=== PATIENT | male | born 1955 | race Caucasian/White ===

== ENCOUNTER 2018-10-17 18:17 | Observation (INO) | payer BC ==
[2018-10-17] MEDS ORDERED: NS 0.9% 1000 ML* 2,000 ML IV ONE (18:32)
[2018-10-17] MEDS ORDERED: Ondansetron INJ* 2 MG/ML VIAL IV ONE (18:32)
[2018-10-17 19:03] LABS: ABS Basophils 0 10^3/ul (0-0.2); ABS Eosinophils 0.1 10^3/ul (0-0.6); ABS Lymphocytes 0.4 10^3/ul (1.0-4.8); ABS Monocytes 0.3 10^3/ul (0-0.8); ABS Neutrophils 7.8 10^3/ul (1.5-7.7); ABS Nucleated RBC 0 10^3/ul; Eosinophil % 1.1 %; Hematocrit 41 % (42-52); Lymphocyte % 4.2 %; Mean Corpuscular HGB Conc 34 g/dl (31-36); Mean Corpuscular Hemoglobin 30 pg (27-31); Mean Corpuscular Volume 89 fL (80-94); Mean Platelet Volume 7.2 fL (7.4-10.4); Nucleated Red Blood Cells % 0; Platelet Count 292 10^3/ul (150-450); Red Blood Count 4.64 10^6/ul (4.00-5.40); Red Cell Distribution Width 13 % (10.5-15); White Blood Count 8.6 10^3/ul (3.5-10.8)
[2018-10-17 19:24] LABS: Albumin 4.2 g/dL (3.2-5.2); Albumin/Globulin Ratio 1.3 (1-3); BUN/Creatinine Ratio 15.6 (8-20); Calcium 9.1 mg/dL (8.6-10.3); EGFR Non-African American 68.8 (>60); Globulin 3.2 g/dL (2-4); Potassium 4.1 mmol/L (3.5-5.0); Total Bilirubin 0.5 mg/dL (0.2-1.0); Total Protein 7.4 g/dL (6.4-8.9)
[2018-10-17] MEDS ORDERED: Lidocaine 1% INJ* 10 MG/ML 30 ML SDV ONE (19:31)
--- NOTE | 2018-10-17 19:45 | ED ---
Syncope/Near Syncope - HPI Summary HPI Summary: The patient is a 63 y/o M presenting to [facility] accompanied by with a chief complaint of syncopal episode today. He states that he wasn't feeling well throughout the day as he was nauseous, so he rested until he got up to go the bathroom when he became dizzy and fell. During the fall, he hit his head, causing a laceration to the left eyebrow. Per , he passed out again, and also vomited afterwards. The dizziness has resolved. He additionally c/o diaphoresis and chills. He denies chest pain or pressure. He has hx of GERD and heart stent. His interlocker maintainer is Dr. Salter. - History Of Current Complaint Chief Complaint: EDDizziness Time Seen by Provider: 10/17/18 18:24 Hx Obtained From: Patient Onset/Duration: Sudden Onset, Resolved Timing: Hours - this morning Activity At Onset: Other - ambulating to the bathroom Associated Head Trauma: Yes Aggravating Factor(s): Nothing Alleviating Factor(s): Nothing Associated Signs And Symptoms: Other - POSITIVE: laceration to left eyebrow, dizziness, nausea, vomiting, diaphoresis, chills; NEGATIVE: chest pressure or pain - Allergies/Home Medications Allergies/Adverse Reactions: Allergies Allergy/AdvReac Type Severity Reaction Status Date / Time aspirin Allergy Hives Verified 10/17/18 20:59 ibuprofen Allergy Hives Verified 10/17/18 20:59 ketorolac [From Toradol] Allergy Hives/Diff. Verified 10/17/18 20:59 Breathing/I tching NSAIDS (Non-Steroidal Allergy Hives Verified 10/17/18 18:22 Anti-Inflamma Home Medications: Home Medications Clopidogrel TAB* [Plavix TAB*] 75 mg PO DAILY 10/17/18 [History Confirmed ] Fluoxetine HCl [Prozac] 20 mg PO DAILY 10/17/18 [History Confirmed 10/17/18] Metformin ER (NF) 500 mg PO BID 10/17/18 [History Confirmed 10/17/18] Pantoprazole Sodium 40 mg PO DAILY 10/17/18 [History Confirmed 10/17/18] Rosuvastatin Calcium 20 mg PO DAILY 10/17/18 [History Confirmed 10/17/18] PMH/Surg Hx/FS Hx/Imm Hx Cardiovascular History: Denies: Hx Hypertension Respiratory History: Denies: Hx Asthma GI History: Denies: Hx Gastroesophageal Reflux Disease - Surgical History Surgery Procedure, Year, and Place: heart stent Infectious Disease History: No Infectious Disease History: Denies: Traveled Outside the [place] in Last 30 Days - Family History Known Family History: Positive: Cardiac Disease - Social History Lives: With Family Alcohol Use: None Hx Substance Use: No Substance Use Type: Reports: None Hx Tobacco Use: No Review of Systems Positive: Chills. Negative: Fever Negative: Erythema Negative: Sore Throat Negative: Chest Pain Negative: Shortness Of Breath, Cough Positive: Vomiting, Nausea. Negative: Abdominal Pain Negative: dysuria, hematuria Negative: Myalgia, Edema Positive: Other - laceration of left eyebrow. Negative: Rash Neurological: Other - dizziness Positive: Syncope All Other Systems Reviewed And Are Negative: Yes Physical Exam - Summary Physical Exam Summary: Constitutional: Well-developed, Well-nourished, Alert. (-) Distressed Skin: Warm, Dry HENT: Normocephalic; Atraumatic Eyes: Conjunctiva normal Neck: Musculoskeletal ROM normal neck. (-) JVD, (-) Stridor, (-) Tracheal deviation Cardio: Rhythm regular, rate normal, Heart sounds normal; Intact distal pulses; The pedal pulses are 2+ and symmetric. Radial pulses are 2+ and symmetric. (-) Murmur Pulmonary/Chest wall: Effort normal. (-) Respiratory distress, (-) Wheezes, (-) Rales Abd: Soft, (-) epigastric tenderness, (-) Distension, (-) Guarding, (-) Rebound Musculoskeletal: (-) Edema Lymph: (-) Cervical adenopathy Neuro: Alert, Oriented x3 Psych: Mood and affect Normal Triage Information Reviewed: Yes Vital Signs On Initial Exam: Initial Vitals Temp Pulse Resp BP Pulse Ox 97 F 99 16 117/68 99 10/17/18 18:20 10/17/18 18:20 10/17/18 18:20 10/17/18 18:20 10/17/18 18:20 Vital Signs Reviewed: Yes - Marcy Coma Scale Best Eye Response: 4 - Spontaneous Best Motor Response: 6 - Obeys Commands Best Verbal Response: 5 - Oriented Coma Scale Total: 15 Procedures - Laceration/Wound Repair 1 Location: head - left eyebrow Description: Linear Anesthesia: 1.0%, Lido Laceration/Wound Explored: clean Suture Type: Other - ethilon, 4-0 simple interrupted Number of Sutures: 5 Diagnostics - Vital Signs Vital Signs Temp Pulse Resp BP Pulse Ox 10/17/18 19:11 91 142/80 100 10/17/18 18:41 91 114/65 100 10/17/18 18:20 97 F 99 16 117/68 99 - Laboratory Lab Results: Lab Results 10/17/18 10/17/18 10/17/18 Range/Units 18:49 18:49 18:49 WBC 8.6 (3.5-10.8) 10^3/ul RBC 4.64 (4.00-5.40) 10^6/ul Hgb 14.0 (14.0-18.0) g/dl Hct 41 L (42-52) % MCV 89 (80-94) fL MCH 30 (27-31) pg MCHC 34 (31-36) g/dl RDW 13 (10.5-15) % Plt Count 292 (150-450) 10^3/ul MPV 7.2 L (7.4-10.4) fL Neut % (Auto) 90.6 % Lymph % (Auto) 4.2 % Bandera % (Auto) 3.9 % Eos % (Auto) 1.1 % Baso % (Auto) 0.2 % Absolute Neuts (auto) 7.8 H (1.5-7.7) 10^3/ul Absolute Lymphs (auto) 0.4 L (1.0-4.8) 10^3/ul Absolute Monos (auto) 0.3 (0-0.8) 10^3/ul Absolute Eos (auto) 0.1 (0-0.6) 10^3/ul Absolute Basos (auto) 0 (0-0.2) 10^3/ul Absolute Nucleated RBC 0 10^3/ul Nucleated RBC % 0 Sodium 137 (135-145) mmol/L Potassium 4.1 (3.5-5.0) mmol/L Chloride 101 (101-111) mmol/L Carbon Dioxide 26 (22-32) mmol/L Anion Gap 10 (2-11) mmol/L BUN 17 (6-24) mg/dL Creatinine 1.09 (0.67-1.17) mg/dL Est GFR ( Amer) 83.2 (>60) Est GFR (Non-Af Amer) 68.8 (>60) BUN/Creatinine Ratio 15.6 (8-20) Glucose 158 H (70-100) mg/dL Lactic Acid 2.1 H* (0.5-2.0) mmol/L Calcium 9.1 (8.6-10.3) mg/dL Total Bilirubin 0.50 (0.2-1.0) mg/dL AST 17 (13-39) U/L ALT 20 (7-52) U/L Alkaline Phosphatase 74 (34-104) U/L Troponin I 0.40 H* (<0.04) ng/mL Total Protein 7.4 (6.4-8.9) g/dL Albumin 4.2 (3.2-5.2) g/dL Globulin 3.2 (2-4) g/dL Albumin/Globulin Ratio 1.3 (1-3) Result Diagrams: 10/17/18 18:49 10/17/18 18:49 Lab Statement: Any lab studies that have been ordered have been reviewed, and results considered in the medical decision making process. - Radiology CXR Radiology Interpretation Completed By: Radiologist Summary of Radiographic Findings: No acute disease. ED physician has reviewed this report. - CT Brain CT CT Interpretation Completed By: Radiologist Summary of CT Findings: No acute intracranial pathology. ED physician has reviewed this report. - EKG 1845 Cardiac Rate: NL - 89 BPM EKG Rhythm: Sinus Rhythm Summary of EKG Findings: No STEMI. Re-Evaluation - Re-Evaluation First Eval Re-Evaluation Time: 20:00 Change: Improved Comment: We repaired the laceration. We discussed admission. Course/Dx Course Of Treatment: The patient is a 63 y/o M [facility] by with a chief complaint of syncopal episode today. He states that he wasn 't feeling well throughout the day as he was nauseous, so he rested until he got up to go the bathroom when he became dizzy and fell. During the fall, he hit his head, causing a laceration to the left eyebrow. Per , he passed out again, and also vomited afterwards. The dizziness has resolved. He additionally c/o diaphoresis and chills. He denies chest pain or pressure. He has hx of GERD and heart stent. His interlocker maintainer is Dr. Salter. Upon physical exam, the patient exhibits laceration to the left eyebrow. In the ED course, the patient was given Ns, Zofran, Metformin, Lipitor, Pantoprazole, Humalog, Heparin, Prozac , Dextrose, and Lidocaine for lac repair. Blood work reveals elevated troponin and lactic acid. The laceration was repaired with 5 4-0 ethilon simple interrupted sutures. EKG is negative. CXR is negative. Brain CT is negative. I spoke with Dr. Verdugo, hospitalist, at 19:55, who accepts the patient for admission. He is agreeable with this plan and understands the need at this time. He is diagnosed with syncope, diarrhea, vomiting, and elevated troponin. I recommend to continue repeat troponin, although he does not have CP at this time. He does have known hx of coronary artery disease. Rule out AL vs. ischemic elevated troponin. - Diagnoses Provider Diagnoses: Syncope, Vomiting, Diarrhea, Elevated troponin - Physician Notifications Discussed Care of Patient With: Rafiq Verdugo - hospitalist Time Discussed With Above Provider: 19:55 Instructed by Provider To: Other - Dr. Verdugo accepts the patient for admission. Discharge - Sign-Out/Discharge Documenting (check all that apply): Patient Departure - Patient will be admitted to [facility] for further care. - Discharge Plan Condition: Stable Disposition: ADMITTED TO [facility] - Billing Disposition and Condition Condition: STABLE Disposition: Admitted to [facility] - Attestation Statements Document Initiated by Nathaniel: Yes Documenting Scribe: Sandi Pressley Provider For Whom Nathaniel is Documenting (Include Credential): Dr. Andres Pagan MD Scribe Attestation: Sandi Wyatt, scribed for Dr. Andres Pagan MD on 10/17/18 at 0755. Scribe Documentation Reviewed: Yes Provider Attestation: The documentation as recorded by the Sandi jessica accurately reflects the service I personally performed and the decisions made by me, Dr. Andres Pagan MD Status of Scribe Document: Viewed
[2018-10-17] MEDS ORDERED: Atorvastatin* 80 MG TAB PO ONE (20:44)
[2018-10-17] MEDS ORDERED: Dextrose 50% Syringe 50 ML* 25 GM/50 ML SYRINGE IV PUSH PRN (20:46)
[2018-10-17] MEDS ORDERED: Metformin ER (NF) 500 MG TAB PO SCH (21:00)
[2018-10-17] MEDS ORDERED: Acetaminophen TAB* 325 MG PO PRN (22:01)
[2018-10-17] MEDS: Insulin LISPRO* 1 UNITS UNIT SUBCUT SCH (22:07)
[2018-10-17] MEDS: Metoprolol Tartrate TAB* 25 MG PO SCH (22:08)
--- NOTE | 2018-10-17 23:22 | HP ---
HISTORY AND PHYSICAL: DATE OF ADMISSION: 10/17/18 ADMITTING PROVIDER: Rafiq Verdugo MD. PRIMARY CARE PHYSICIAN: Cresencio Hathaway MD. OUTPATIENT AUTO BATTERY BUILDER: Easton Salter MD. CHIEF COMPLAINT: Syncope, nausea, vomiting, diaphoresis, and chills. HISTORY OF PRESENT ILLNESS: Ilya Morel is a 63-year-old male with past medical history of CAD with bare metal stent to the LAD (2006 at [facility]), non-insulin- dependent diabetes mellitus, hyperlipidemia, first-degree AV block , testicular cancer, status post chemotherapy. Midmorning of admission, he developed some nausea and stayed in bed most of the morning. He got up to use the restroom and at the toilet before urinating, he passed out. He is not sure if he lost consciousness, but Xena heard a loud thud and came to assist him. He sat himself up, was nauseous again, vomited into the toilet and then stood up and passed out into his 's arms. He was sweating profusely. He denied any chest pain, chest pressure or shortness of breath, and no sick contacts. He presented to the [facility], had evidence of a left eyebrow laceration and initial troponin of 0.40, lactic acid of 2.1, some ST depressions in V4, V5 and was referred to the hospitalist service for syncope and ACS rule out. A week prior to this event, "something was not feeling quite right" and he developed as bad acid reflux like symptoms for a few days and this resolved. He does a lot of walking, but no other strenuous exercise. He denies any orthopnea or lower extremity edema. He has seen Dr. Salter on , who recommended a stress echocardiogram and that was scheduled for next week. He had some mild stomach pain that resolved after the vomiting. PAST MEDICAL HISTORY: CAD, status post LAD bare metal stent in 2006 at [facility]; hyperlipidemia; mem-rjwhsfd-uqahonqsd diabetes mellitus (last A1c of 13.1 in our system in September 2016); first-degree AV block; testicular cancer, status post chemotherapy, started 2006. PAST SURGICAL HISTORY: Includes lymph node resection related to the testicular cancer. MEDICATIONS: 1. Crestor 20 mg daily. 2. Pantoprazole 40 mg daily. 3. Metformin 500 mg p.o. b.i.d. 4. Prozac 20 mg daily. 5. Plavix 75 mg daily. ALLERGIES: NSAIDs, in particular IBUPROFEN, ASPIRIN, and TORADOL which caused hives and difficulty breathing. FAMILY HISTORY: Father at age 79 of CVA. Mother is alive at age 90 with neuropathy and resolved high blood pressure. 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 He is a never smoker. He occasionally drinks alcohol. Denies any drug use. He desires to be a full code. His medical surrogate is Xena Morel, his , who is at the bedside. REVIEW OF SYSTEMS: Complete 14-point review of systems negative except as per HPI. He denies any headaches, sick contacts, chest pain, chest pressure, shortness of breath, orthopnea, or edema. No vision changes or focal weakness. PHYSICAL EXAMINATION GENERAL APPEARANCE: In no acute distress, but with left eyelid laceration. VITAL SIGNS: Temperature 97.0, pulse rate 99, respiratory rate 16, satting 99% on room air, blood pressure 117/68. HEENT: Normocephalic. Left eyebrow laceration, status post stitching by Dr. Pagan. No scleral icterus. Moist mucous membranes. NECK: Supple. No cervical lymphadenopathy. No neck stiffness. LUNGS: Clear to auscultation bilaterally with no wheezing, rales, or rhonchi. CARDIOVASCULAR: Regular rate and rhythm. No murmurs, rubs, or gallops. ABDOMEN: Soft, nontender, nondistended. EXTREMITIES: Warm, well perfused. No peripheral edema. NEUROLOGIC: Cranial nerves II through XII intact. Moving all extremities. SKIN: No lesions or rashes. DIAGNOSTIC STUDIES/LAB DATA: White count 8.6, hemoglobin 14.0, hematocrit 41, platelets 292. Sodium 137, potassium 4.1, chloride 101, carbon dioxide 26, BUN 17, creatinine 1.09, glucose 150, lactic acid 2.1, calcium 9.1, total bili 0.5, AST 17, ALT 20, troponin 0.40, alk phos 74, albumin 4.2. Imaging: Official chest x-ray pending, but no acute process or infiltrates by my read. CT head, a noncontrast study, no acute intracranial pathology more specifically. EKG demonstrates first-degree AV block with MO interval 221; Q waves in lead 3; ST depressions in V4, V5; T-wave flattening in V5 through V6; normal axis; poor R-wave progression; QTC of 443. ASSESSMENT AND PLAN: Ilya Morel is a 63-year-old male with past medical history of coronary artery disease, fqm-efkrwja-rssaeckjh diabetes mellitus, hyperlipidemia, presenting with syncope, nausea, vomiting, diaphoresis, chills, and elevated troponin. Differential includes gastroenteritis versus acute coronary syndrome. Trend troponins every 3 hours until peak or flat, next at 2130 and 0030. Get EKGs at those intervals as well. Adding on A1c, giving him Lipitor 80 mg tonight, a formulary substitute for his Crestor in the setting of ACS. He is intolerant of aspirin, so continue his Plavix. He has a history of 1 bare metal stent to the LAD, but some RCA disease at that time that does not seem to have been intervened upon, requested medical records from Dr. Salter's office. We will plan for an echocardiogram, he was due for a stress echo next week as well. Differential also would include an arrhythmia, history of first- degree AV block, continue telemetry monitoring, keep electrolytes replete. He is denying any chest pain or shortness of breath here today and hold off on any heparin drip or nitroglycerin. He can eat a consistent carbohydrate diet until midnight and n.p.o., heart healthy as well. His other medications included pantoprazole, hold his metformin in the setting of possible need for left heart cath depending on clinical course with IV contrast, continue his fluoxetine 20 mg daily and pantoprazole 40 mg daily. He is a full code. Medical surrogate is his Xena Morel. For DVT prophylaxis, heparin 5000 units t.i.d. [id number]/[facility] #: [id number] [facility]
[2018-10-18] MEDS: Metoprolol Tartrate TAB* 25 MG PO SCH ×4 (03:10→21:11)
[2018-10-18] MEDS: Insulin LISPRO* 1 UNITS UNIT SUBCUT SCH ×4 (07:25→21:11)
[2018-10-18] MEDS: FLUoxetine CAP* 20 MG PO SCH (07:31)
[2018-10-18] MEDS: Pantoprazole TAB * 40 MG TAB PO SCH (07:32)
[2018-10-18] MEDS: Heparin VIAL(*) 5000 UNITS/ML VIAL (FIVE THOUSAND) SUBCUT SCH ×2 (07:32→19:00)
--- NOTE | 2018-10-18 10:43 | CONSULT ---
Subjective Date of Service: 10/18/18 Interval History: Date of consult 10/18/2018 PMD and Service: Dr. Cresencio Hathaway Legal Project Manager: Dr. Salter CC: Abdomen discomfort and syncope Reason for consult: NSTEMI HPI Ilya Morel is a 63 year old man admitted with an NSTEMI. Had PCI with BMS in 2006 and used clopidogrel alone without aspirin. Last week was traveling to [place] with (present) driving to burr picker a rare antique. Had 2 days starting last Sunday of persistent epigastric and lower chest discomfort felt was heartburn and took multiple rolaids. Yesterday had lower abdomen discomfort , nausea, vomiting and chills felt had viral infection. Got up to go to bathroom and felt to knees with weakness, syncopized and has trauma above left eye. Ruled in for ACS with EKG changes and abnormal troponin (unsure which of the 2 symptoms above was his [place] symptoms). He is currently asymptomatic. 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 He is a never smoker. He occasionally drinks alcohol. Denies any drug use. He desires to be a full code. His medical surrogate is Xena Morel, his , who is at the bedside. Allergies: Has anaphylaxis to aspirin and NSAIDs for 20+ years PMH: Medical Problems: Diabetes Type II Previous [place] - (09/2007) episodic neck discomfort 1 week prior admission 09/16/07: Cath [facility] for NSTEMI troponin critical LAD and 60-70% RCA. ef 45% anterior hypokinesis 09/16/07: Cath Dr. Anabell Hernadez LAD lesions rxed with 3.5 x 38 Zeta bare metal stent. Cancer, Testicular - (2005) s/p orchiectomy and radical lymph node dissection and chemotherapy Gastroesophageal Reflux Disease (GERD) Anxiety Rhinitis Hypercholesterolemia Obesity Sleep Apnea - (2005) has not used cpap since Ankle - left ankle trauma repair. Surgical Hx: Orchiectomy - (07/2007) Laparotomy - (07/2006) lymph node dissection 33 Knee Surgery - (10/2011) left arthroscopic FH: Hypertension. Father: due to Stroke - (age 77 Years). SH: Marital: .Lives With: Spouse. 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 Personal Habits: Smoking: Patient has never smoked.Cigarette Use: Never Smoked Cigarettes.Alcohol: approx 3 alchoholic drinks per week.Drug Use: Denies Drug Use. Medications Active Medications: Acetaminophen (Tylenol Tab*) 650 mg PO Q6H PRN PRN Reason: HEADACHE/PAIN Last Admin: 10/17/18 22:08 Dose: 650 mg Atorvastatin Calcium (Lipitor*) 80 mg PO 1700 DARRYL Dextrose (D50w Syringe 50 Ml*) 12.5 gm IV PUSH .FOR FS < 60 - SS PRN PRN Reason: FS < 60 Fluoxetine HCl (Prozac Cap*) 20 mg PO DAILY [facility] Last Admin: 10/18/18 07:31 Dose: 20 mg Heparin Sodium (Porcine) (Heparin Vial(*)) 5,000 units SUBCUT Q8HR [facility] Last Admin: 10/18/18 07:32 Dose: 5,000 units Insulin Human Lispro (Humalog*) 0 units SUBCUT ACHS [facility]; Protocol Last Admin: 10/18/18 07:25 Dose: Not Given Metoprolol Tartrate (Lopressor Tab*) 25 mg PO Q6H [facility] Last Admin: 10/18/18 10:12 Dose: Not Given Pantoprazole Sodium (Protonix Tab (Nf)) 40 mg PO DAILY [facility] Last Admin: 10/18/18 07:32 Dose: 40 mg Home Medications: Clopidogrel TAB* [Plavix TAB*] 75 mg PO DAILY 10/17/18 [History Confirmed ] Fluoxetine HCl [Prozac] 20 mg PO DAILY 10/17/18 [History Confirmed 10/17/18] Metformin ER (NF) 500 mg PO BID 10/17/18 [History Confirmed 10/17/18] Pantoprazole Sodium 40 mg PO DAILY 10/17/18 [History Confirmed 10/17/18] Rosuvastatin Calcium 20 mg PO DAILY 10/17/18 [History Confirmed 10/17/18] Review of Systems - Measurements Intake and Output: Intake and Output Last 24 Hours 10/16/18 10/17/18 10/18/18 10/19/18 06:59 06:59 06:59 06:59 Intake Total 0 Balance 0 Weight 216 lb 4.8 oz Intake: Oral 0 - Review of Systems Constitutional Symptoms: Negative: Weight Gain, Weight Loss Dermatology: Negative: Rash, Skin Lesions HEENT: Negative: Change in Hearing, Vertigo Eyes: Negative: Change in Vision, Double Vision Thyroid: Negative: Radiation Exposure Pulmonary: Negative: Cough, Sputum, Hemoptysis, Respiratory Distress, Shortness of Breath, COPD Cardiology: Positive: Chest Pain, Faintness, Syncope Negative: Shortness of Breath, Palpitations, Swelling of Ankles, Peripheral Vascular Dis, Edema, Claudication, Paroxysmal Nocturnal Dyspnea, Orthopnea Gastroenterology: Positive: Abdominal Pain, Nausea, Vomiting, Heartburn Negative: Anorexia, Diarrhea, Blood in Stools, Change in Bowel Habits, Haematemesis, Melena Genital - Urinary: Negative: Hematuria, Polyuria Musculoskeletal: Negative: Low Back Pain, Sciatica Endocrinology: Positive: Obesity, Diabetes Negative: Polydipsia, Polyuria Hematologic/Lymphatic: Positive: Use of Antiplatelet Drugs Negative: Anemia, Hx Leukemia, Hx Lymphoma, Use of Anticoagulant Neurology: Negative: Diplopia, Dizziness, Hx of Stroke\TIA, Hx Seizures Psychiatry: Negative: Unusual Anxiety, Suicidal Ideation Allergic/Immunologic: Negative: Hx HIV, Immunocompromise Review of Systems Statement: All other review of systems negative, unless stated above. Objective Vital Signs: Temp Pulse Resp BP Pulse Ox 98.6 F 63 16 95/58 97 10/18/18 09:00 10/18/18 09:00 10/18/18 09:00 10/18/18 09:00 10/18/18 09:00 Oxygen Devices in Use Now: None Appearance: nad, pleasant Ears/Nose/Mouth/Throat: Clear Oropharnyx, Mucous Membranes Moist Neck: NL Appearance and Movements; NL JVP, Trachea Midline Respiratory: Symmetrical Chest Expansion and Respiratory Effort, Clear to Auscultation Cardiovascular: NL Sounds; No Murmurs; No JVD, RRR, No Edema Abdominal: NL Sounds; No Tenderness; No Distention Extremities: No Edema Skin: No Rash or Ulcers Neurological: Alert and Oriented x 3 Laboratory Results: 10/17/18 18:49 10/17/18 18:49 Total Bilirubin 0.50 mg/dL (0.2-1.0) 10/17/18 18:49 AST 17 U/L (13-39) 10/17/18 18:49 ALT 20 U/L (7-52) 10/17/18 18:49 Alkaline Phosphatase 74 U/L (34-104) 10/17/18 18:49 CK-MB (CK-2) 1.4 ng/mL (0.6-6.3) 10/18/18 00:32 Total Protein 7.4 g/dL (6.4-8.9) 10/17/18 18:49 Albumin 4.2 g/dL (3.2-5.2) 10/17/18 18:49 Globulin 3.2 g/dL (2-4) 10/17/18 18:49 Albumin/Globulin Ratio 1.3 (1-3) 10/17/18 18:49 10/17/18 10/17/18 10/18/18 18:49 22:45 00:32 Troponin I 0.40 H* 0.35 H* 0.39 H* hgb1c 6.3 EKG Data: EKG today shows NSR, inferior q waves with lateral ST depression (the q waves other than lead III and lateral ST depression is new since 09/09/2018 Echo shows LVEF 50% with inferior/inferolateral hypokinesis and mild-moderate MR Assessment/Plan Ilya Morel is a 63 year old man with with a history as above admitted with a recent NSTEMI (? yesterday or last week). Currently pain free, LVEF 50%. - Cardiac catheterization with intent for revascularization indicated and recommended. Risks, benefits and alternatives were discussed and patient wishes to proceed. - Rebecca-operative anti-platelet management as per Dr. Martinez - Continue statin - Continue beta-joy Thank you for allowing me to participate in the cardiovascular care of this patient. Please do not hesitate to contact me with questions or concerns.
--- NOTE | 2018-10-18 11:29 | ECHO ---
Patient: BECKY UMANZOR [facility] Rec#: [id number] : 1955 Date: 10/18/2018 Age: 63y Height: 178 cm / 70.1 in Weight: 97.5 kg / 214.9 lbs Sex: M BSA: 2.15 Room#: [facility] Admit Date#: 10/17/2018 Type: Inpatient Referring: Rafiq Verdugo Reading: Jaya Zhong DO Steam Shovel Operator: Lolly Corea RDCS CC: Cresencio Hathaway MD CC: Easton Salter MD Transthoracic Echocardiogram Indication: Abnormal EKG, syncope BP: 90/56 HR: 65 Rhythm: Heart Block Findings History: CAD with stent to LAD 2006, DM, HLD, 1st degree heart block, s/p chemotherapy for testicular cancer. Technical Comments: The study quality is fair. Completed at 0845. Left Ventricle: The left ventricular chamber size is normal. There is no left ventricular hypertrophy. Left ventricular systolic function is at the lower limits of normal. The estimated ejection fraction is 50-55%. Normal left ventricular diastolic filling is observed. The basal inferior, mid inferolateral, mid inferior, apical lateral, and apical inferior wall segments are hypokinetic (score 2). Overall wallmotion score index is 2.00 Left Atrium: The left atrium is mildly dilated. Right Ventricle: The right ventricular chamber size and systolic function are within normal limits. Right Atrium: The right atrium is mildly dilated. Aortic Valve: The aortic valve is trileaflet. The aortic valve leaflets are mildly thickened.mild aortic annulus calcification There is a trace of aortic regurgitation. There is no evidence of aortic stenosis. Mitral Valve: The mitral valve leaflets are mildly thickened. There is mild to moderate mitral regurgitation. There is no evidence of mitral stenosis. Tricuspid Valve: The tricuspid valve leaflets are normal. There is trace tricuspid regurgitation. Unable to estimate the right ventricular systolic pressure. There is no tricuspid stenosis. Pulmonic Valve: The pulmonic valve appears normal. There is a trace pulmonic regurgitation. There is no pulmonic stenosis. Pericardium: There is no significant pericardial effusion. A pericardial fat pad is visualized. Aorta: There is mild dilatation of the ascending aorta. There is no dilatation of the aortic arch. The aortic root is normal in size. Pulmonary Artery: The main pulmonary artery is not well visualized. Venous: The inferior vena cava appears normal in size. There is a greater than 50% respiratory change in the inferior vena cava dimension. Conclusions The left ventricular chamber size is normal. There is no left ventricular hypertrophy. Left ventricular systolic function is at the lower limits of normal at 50% with inferior/inferolateral wall hypokinesis Mild LA dilation The right ventricular chamber size and systolic function are within normal limits. There is mild to moderate mitral regurgitation. Compared to prior resting stress echo imaging from 02/2014, inferior/inferolateral wall motion abnormality is new Measurements Name Value Normal Range RVIDd (AP) 2D 3.8 cm (0.9 - 2.6) RVDdMajor (2D) 4.9 cm (2.2 - 4.4) RAd ISD 4CH 5.1 cm (3.4 - 4.9) RA (A4C)W 4.2 cm (2.9 - 4.6) IVSd (2D) 1 cm (0.6 - 1) LVPWd (2D) 0.9 cm (0.6 - 1) LVIDd (2D) 4.3 cm (3.6 - 5.4) LVIDs (2D) 3.1 cm - LV FS (2D) 27 % (25 - 45) Aortic Annulus 2.1 cm (1.4 - 2.6) Ao root diameter (2D) 3.3 cm (2.1 - 3.5) Ascending Ao 3.5 cm (2.1 - 3.4) Aortic arch 2.4 cm (1.8 - 3.4) LA dimension (AP) 2D 3.9 cm (2.3 - 3.8) LAd ISD 4CH 5 cm (2.9 - 5.3) LA ISD 4CH W 4.5 cm (2.5 - 4.5) Name Value Normal Range LA ESV BP (A/L) index 37 ml/m2 - Name Value Normal Range MV E-wave Vmax 1 m/sec - MV deceleration time 225 msec - MV A-wave Vmax 0.6 m/sec - MV E:A ratio 1.7 ratio - LV septal e' Vmax 0.1 m/sec - LV lateral e' Vmax 0.11 m/sec - LV E:e' septal ratio 10 ratio - LV E:e' lateral ratio 9.1 ratio - Name Value Normal Range AV Vmax 1.4 m/sec - AV VTI 29 cm - AV peak gradient 7 mmHg - AV mean gradient 4 mmHg - LVOT Vmax 1.1 m/sec - LVOT VTI 21 cm - LVOT peak gradient 5 mmHg - LVOT mean gradient 2 mmHg - GARRY Vmax 0.9 m/sec - Name Value Normal Range MR Vmax 4.5 m/sec - MR VTI 131 cm - MR flow (PISA) 53 ml/sec - MR ERO 0.12 cm2 - MR PISA radius 0.5 cm - MR alias Vmax 33.7 cm/sec - Name Value Normal Range IVC diameter 1.8 cm - Name Value Normal Range PV Vmax 0.7 m/sec - PV peak gradient 2 mmHg - Wallmotion BAS Not Seen BA Not Seen BAL Not Seen REINALDO Not Seen BI Hypokinetic BIS Not Seen MAS Not Seen MA Not Seen MAL Not Seen MIL Hypokinetic VA Hypokinetic MIS Not Seen Not Seen AA Not Seen AL Hypokinetic AI Hypokinetic APEX Not Seen
[2018-10-18] MEDS ORDERED: Iohexol 350 (CONTRAST) 200 ML MDV IV ONE (11:32)
[2018-10-18] MEDS ORDERED: Lidocaine 1% INJ* 10 MG/ML 30 ML SDV ONE ×2 (11:32→11:38)
[2018-10-18] MEDS ORDERED: Heparin 2 UNITS/ML IVPREMIX* 2,000 ML IV ONE (11:32)
[2018-10-18] MEDS ORDERED: Heparin(*) 1000 UNIT/ML 10 ML VIAL CATH LAB IV ONE (11:36)
[2018-10-18] MEDS ORDERED: nitroGLYCERIN DRIP* 25,000 MCG/250 ML BTL ONE (11:37)
[2018-10-18] MEDS ORDERED: VERAPAMIL 2.5 MG/ML 2 ML VIAL ** 5 mg/2 ml ONE (11:37)
[2018-10-18] MEDS ORDERED: Heparin 2 UNITS/ML IVPREMIX* 3,000 ML IV ONE (11:38)
[2018-10-18] MEDS ORDERED: Midazolam* 1 MG/ML 10 ML VIAL (10 MG) ONE (11:38)
[2018-10-18] MEDS ORDERED: fentaNYL* 50 MCG/ML 2 ML VIAL (100 MCG VIAL) ONE (11:38)
[2018-10-18] MEDS ORDERED: Ticagrelor* 90 MG TAB PO ONE (12:25)
[2018-10-18] MEDS ORDERED: Eptifibatide IV (Load dose)(*) 2 MG/ML 10 ml VIAL ONE (12:35)
--- NOTE | 2018-10-18 13:17 | PN ---
Progress Note - Progress Note Date of Service: 10/18/18 Note: The patient was having his cardiac catheterization when I arrived and hence I couldn't round on him. I spoke with Dr. Jaya Zhong and have reviewed his presentation from Dr. Rafiq Verdugo's admitting history and phyical. I have also reviewed his transthoracic echocardiogram report and Dr. Zhong's written consultation. He presents with a non-STEMI in the past few days. His troponin I levels are elevated. He has a history of CAD and stenting in 2006. He has multiple risk factors for CAD and has been followed by Dr. Salter as an outpatient for cardiology. T2D - well controlled as an outpatient with metformin - this is likely to be held for 1 day after his coronary angiogram. He is on lispro insulin coverage. Hypercholesterolemia - controlled Sleep apnea I agree with the current management plan and will see him on my rounds tomorrow morning.
[2018-10-18] MEDS ORDERED: Nitroglycerin TAB 0.4 MG* 0.4 MG TAB SL PRN (14:01)
[2018-10-18] MEDS ORDERED: NS 0.9% 1000 ML* 400 ML IV SCH (14:15)
[2018-10-18 14:26] LABS: CRP High Sensitivity 10.98 mg/L (<2.00); HDL Cholesterol 35.1 mg/dL
[2018-10-18] MEDS ORDERED: Atorvastatin* 80 MG TAB PO SCH (17:00)
[2018-10-18] MEDS ORDERED: Temazepam CAP* 15 MG PO PRN (19:44)
[2018-10-18] MEDS: Ticagrelor* 90 MG TAB PO SCH (21:11)
[2018-10-19] MEDS: Metoprolol Tartrate TAB* 25 MG PO SCH ×2 (03:44→11:16)
[2018-10-19 06:16] LABS: BUN/Creatinine Ratio 15.7 (8-20); Calcium 8.3 mg/dL (8.6-10.3); EGFR Non-African American 86.9 (>60)
[2018-10-19] MEDS: Insulin LISPRO* 1 UNITS UNIT SUBCUT SCH ×2 (08:49→11:40)
[2018-10-19] MEDS: Ticagrelor* 90 MG TAB PO SCH (08:50)
[2018-10-19] MEDS: FLUoxetine CAP* 20 MG PO SCH (08:50)
[2018-10-19] MEDS: Pantoprazole TAB * 40 MG TAB PO SCH (08:50)
[2018-10-19 12:19] VITALS: BP 104/71
--- NOTE | 2018-10-19 12:49 | PN ---
Subjective - Subjective Reason for Note: Discharge Note History: Discharge summary He has tolerated his interventional cardiology yesterday and today is feeling well and wants to go home. His left frontal head injury is causing him mild headache, but no other problems Active Problems: Active Problems Injury of fascia of head (Acute) S09.10XA NSTEMI (non-ST elevated myocardial infarction) (Acute) I21.4 Stented coronary artery (Acute) Z95.5 Syncope (Acute) R55 Coronary artery disease (Chronic) I25.10 Hypercholesterolemia (Chronic) E78.00 Obese (Chronic) E66.9 Sleep apnea (Chronic) G47.30 Type 2 diabetes mellitus, controlled (Chronic) E11.9 Current Medications: Current Medications Acetaminophen (Tylenol Tab*) 650 mg PO Q6H PRN PRN Reason: HEADACHE/PAIN Last Admin: 10/17/18 22:08 Dose: 650 mg Atorvastatin Calcium (Lipitor*) 80 mg PO 1700 [facility] Last Admin: 10/18/18 16:05 Dose: 80 mg Dextrose (D50w Syringe 50 Ml*) 12.5 gm IV PUSH .FOR FS < 60 - SS PRN PRN Reason: FS < 60 Fluoxetine HCl (Prozac Cap*) 20 mg PO DAILY [facility] Last Admin: 10/19/18 08:50 Dose: 20 mg Insulin Human Lispro (Humalog*) 0 units SUBCUT ACHS [facility]; Protocol Last Admin: 10/19/18 08:49 Dose: Not Given Metoprolol Tartrate (Lopressor Tab*) 25 mg PO Q6H [facility] Last Admin: 10/19/18 11:16 Dose: 25 mg Nitroglycerin (Nitroglycerin Tab 0.4 Mg*) 0.4 mg SL Q5M PRN PRN Reason: ANGINA Pantoprazole Sodium (Protonix Tab (Nf)) 40 mg PO DAILY [facility] Last Admin: 10/19/18 08:50 Dose: 40 mg Temazepam (Restoril Cap*) 15 mg PO BEDTIME PRN PRN Reason: INSOMNIA Ticagrelor (Brilinta*) 90 mg PO BID [facility] Last Admin: 10/19/18 08:50 Dose: 90 mg - Review of Systems Constitutional Symptoms: No: Fever, Night Sweats Pulmonary: Negative: Cough, Sputum, Respiratory Distress, Shortness of Breath Cardiology: Negative: Chest Pain, Palpitations, Swelling of Ankles, Edema, Orthopnoea Gastroenterology: Negative: Abdominal Pain, Nausea, Vomiting, Anorexia, Indigestion, Change in Bowel Habits Genital - Urinary: Negative: Dysuria Neurology: Positive: Headache - mild from head injury Negative: Diplopia, Change in Balancing, Change in Coordination, Change in Memory, Change in Speech Home Medications: Home Medications Medication Instructions Recorded Confirmed Type Clopidogrel TAB* [Plavix TAB*] 75 mg PO DAILY 10/17/18 10/17/18 History Fluoxetine HCl [Prozac] 20 mg PO DAILY 10/17/18 10/17/18 History Metformin ER (NF) 500 mg PO BID 10/17/18 10/17/18 History Pantoprazole Sodium 40 mg PO DAILY 10/17/18 10/17/18 History Rosuvastatin Calcium 20 mg PO DAILY 10/17/18 10/17/18 History Ticagrelor* [Brilinta 90 MG*] 90 mg PO BID #60 tab 10/18/18 Rx Allergies: Allergies Allergy/AdvReac Type Severity Reaction Status Date / Time aspirin Allergy Hives Verified 10/17/18 20:59 ibuprofen Allergy Hives Verified 10/17/18 20:59 ketorolac [From Toradol] Allergy Hives/Diff. Verified 10/17/18 20:59 Breathing/I tching NSAIDS (Non-Steroidal Allergy Hives Verified 10/17/18 18:22 Anti-Inflamma Objective - Vital Signs Vital Signs: Vital Signs 10/18/18 10/18/18 10/18/18 13:35 13:38 13:39 Temperature 97.6 F Pulse Rate 62 65 63 Respiratory 16 12 11 Rate Blood Pressure 110/69 110/69 (mmHg) O2 Sat by Pulse 96 97 97 Oximetry 10/18/18 10/18/18 10/18/18 13:45 14:00 14:01 Temperature 97.8 F Pulse Rate 62 61 Respiratory 6 16 Rate Blood Pressure 105/67 111/67 (mmHg) O2 Sat by Pulse 97 98 Oximetry 10/18/18 10/18/18 10/18/18 14:15 14:30 14:45 Temperature Pulse Rate 63 67 64 Respiratory 11 Rate Blood Pressure 114/72 118/74 111/69 (mmHg) O2 Sat by Pulse 98 99 99 Oximetry 10/18/18 10/18/18 10/18/18 15:00 15:30 16:00 Temperature 99.6 F Pulse Rate 62 64 64 Respiratory 16 13 9 Rate Blood Pressure 112/67 101/60 104/62 (mmHg) O2 Sat by Pulse 96 96 96 Oximetry 10/18/18 10/18/18 10/18/18 16:30 17:00 17:30 Temperature Pulse Rate 60 61 63 Respiratory 8 12 10 Rate Blood Pressure 97/60 98/60 109/71 (mmHg) O2 Sat by Pulse 96 97 96 Oximetry 10/18/18 10/18/18 10/18/18 18:00 18:30 19:00 Temperature Pulse Rate 64 63 61 Respiratory 6 9 11 Rate Blood Pressure 103/69 102/66 96/58 (mmHg) O2 Sat by Pulse 97 97 96 Oximetry 10/18/18 10/18/18 10/18/18 19:28 19:30 20:00 Temperature 99.8 F Pulse Rate 61 62 Respiratory 18 18 Rate Blood Pressure 94/55 92/57 (mmHg) O2 Sat by Pulse 95 95 Oximetry 10/18/18 10/18/18 10/18/18 20:30 21:00 21:30 Temperature Pulse Rate 67 63 60 Respiratory 10 18 12 Rate Blood Pressure 112/63 93/58 (mmHg) O2 Sat by Pulse 96 96 96 Oximetry 10/18/18 10/18/18 10/18/18 22:00 22:03 22:30 Temperature Pulse Rate 60 60 59 Respiratory 12 8 22 Rate Blood Pressure 94/56 94/56 115/66 (mmHg) O2 Sat by Pulse 96 95 95 Oximetry 10/18/18 10/18/18 10/19/18 23:00 23:30 00:00 Temperature 98.3 F Pulse Rate 59 59 59 Respiratory 14 12 17 Rate Blood Pressure 96/59 90/58 86/50 (mmHg) O2 Sat by Pulse 95 96 95 Oximetry 10/19/18 10/19/18 10/19/18 00:20 00:30 00:35 Temperature Pulse Rate 61 59 Respiratory 11 14 12 Rate Blood Pressure 102/60 (mmHg) O2 Sat by Pulse 96 95 Oximetry 10/19/18 10/19/18 10/19/18 01:00 01:02 01:30 Temperature Pulse Rate 59 58 Respiratory 12 12 14 Rate Blood Pressure 92/59 100/61 (mmHg) O2 Sat by Pulse 94 95 Oximetry 10/19/18 10/19/18 10/19/18 02:00 02:30 03:00 Temperature Pulse Rate 61 58 58 Respiratory 14 10 12 Rate Blood Pressure 106/68 103/65 101/66 (mmHg) O2 Sat by Pulse 98 96 97 Oximetry 10/19/18 10/19/18 10/19/18 03:30 03:38 03:48 Temperature Pulse Rate 60 58 Respiratory 3 2 12 Rate Blood Pressure 98/59 (mmHg) O2 Sat by Pulse 96 97 Oximetry 10/19/18 10/19/18 10/19/18 04:00 04:03 04:30 Temperature 97.7 F Pulse Rate 58 59 Respiratory 11 14 Rate Blood Pressure 93/62 111/67 (mmHg) O2 Sat by Pulse 96 94 Oximetry 10/19/18 10/19/18 10/19/18 05:00 05:30 05:55 Temperature Pulse Rate 65 59 Respiratory 17 14 Rate Blood Pressure 108/72 102/70 (mmHg) O2 Sat by Pulse 93 97 Oximetry 10/19/18 10/19/18 10/19/18 06:00 07:00 07:40 Temperature 98.9 F Pulse Rate 59 60 Respiratory 10 Rate Blood Pressure 95/67 113/68 (mmHg) O2 Sat by Pulse 97 96 Oximetry 10/19/18 10/19/18 10/19/18 08:00 09:00 10:00 Temperature Pulse Rate 63 59 Respiratory 14 11 6 Rate Blood Pressure 108/69 113/72 (mmHg) O2 Sat by Pulse 96 95 Oximetry 10/19/18 11:00 Temperature Pulse Rate 61 Respiratory 13 Rate Blood Pressure 127/73 (mmHg) O2 Sat by Pulse 99 Oximetry - Intake and Output Intake and Output: Intake & Output 10/16/18 10/17/18 10/18/18 10/19/18 11:59 11:59 11:59 11:59 Intake Total 0 1330 Output Total 750 Balance 0 580 Weight 216 lb 4.8 oz 215 lb 13.321 oz Intake: IV Fluids 400 Oral 0 930 Output: Urine 750 ADLs: Meal Record Start: 10/17/18 20: 58 Freq: DAILY@0900,1400,1800 Status: Inactive Protocol: Created 10/17/18 20:58 System (Rec: 10/17/18 20:58 System [id number]) Document 10/18/18 09:00 [id number] (Rec: 10/18/18 09:23 [id number] TELE-C01) ADLs: Meal Record Start: 10/18/18 13: 48 Freq: Status: Active Protocol: Created 10/18/18 13:48 [id number] (Rec: 10/18/18 13:48 [id number] ICU-C15) Intake and Output Start: 10/17/18 18: 20 Freq: Status: Active Protocol: Created 10/17/18 18:20 System (Rec: 10/17/18 18:20 System [id number]) Intake and Output Start: 10/17/18 20: 58 Freq: DAILY@0600,1400,2200 Status: Inactive Protocol: Created 10/17/18 20:58 System (Rec: 10/17/18 20:58 System [email or web address]-C03) Document 10/18/18 06:00 [id number] (Rec: 10/18/18 06:07 [id number] TELE-C33) Intake and Output Start: 10/18/18 13: 48 Freq: Q4HR Status: Active Protocol: Created 10/18/18 13:48 [id number] (Rec: 10/18/18 13:48 [id number] ICU-C15) Document 10/18/18 14:00 [id number] (Rec: 10/18/18 15:46 [id number] ICU-C15) Document 10/18/18 14:00 [id number] (Rec: 10/18/18 17:11 [id number] ICU-C15) Document 10/18/18 15:00 [id number] (Rec: 10/18/18 16:40 [id number] ICU-C15) Document 10/18/18 17:00 [id number] (Rec: 10/18/18 17:12 [id number] ICU-C15) Document 10/18/18 18:00 [id number] (Rec: 10/18/18 18:26 [id number] ICU-C15) Document 10/18/18 19:00 [id number] (Rec: 10/18/18 20:27 [id number] ICU-C15) Document 10/18/18 20:00 [id number] (Rec: 10/18/18 20:27 [id number] ICU-C15) Document 10/18/18 20:30 [id number] (Rec: 10/18/18 20:30 [id number] ICU-M22) Document 10/18/18 22:00 [id number] (Rec: 10/18/18 22:32 [id number] ICU-C15) Document 10/18/18 23:00 [id number] (Rec: 10/19/18 00:40 [id number] ICU-C15) Document 10/19/18 00:35 [id number] (Rec: 10/19/18 00:50 [id number] ICU-C15) Document 10/19/18 01:00 [id number] (Rec: 10/19/18 01:16 [id number] ICU-C15) Document 10/19/18 02:00 [id number] (Rec: 10/19/18 03:47 [id number] ICU-C15) Document 10/19/18 03:00 [id number] (Rec: 10/19/18 03:47 [id number] ICU-C15) Document 10/19/18 03:48 [id number] (Rec: 10/19/18 03:51 [id number] ICU-C15) Document 10/19/18 05:00 [id number] (Rec: 10/19/18 05:55 [id number] ICU-C15) Document 10/19/18 05:55 [id number] (Rec: 10/19/18 05:56 [id number] ICU-C15) Document 10/19/18 08:00 [id number] (Rec: 10/19/18 10:29 [id number] ICU-C12) - Physical Exam General Physical Exam Comment: He has a suture line above his left eye and localized bruising/swelling. He has a left periorbital hematoma General: No Cyanosis, No Anemia, No Jaundice, No Clubbing Eye Exam: bilateral: PERRLA, EOMI Endocrine: Yes Central Obesity, No Acromegaly, No Vitiligo, No Flushing, No Acanthosis nigricans, No Violaceious striae, No [place] Syndrome, No Buccal pigmenatation, No [place]air Crease Pigmentation Lungs and Chest: Yes: Chest Expansion Full, Chest Expansion Symetrica, Percussion Note Resonant, Vessicular Breath Sounds. No: Crackles, Wheezes, Respiratory Distress Heart Rate and Rhythm: Regular JVP: Not Elevated Additional Cardiovascular: Yes: Normal Heart Sounds. No: Heart Murmur, Carotid Bruits, Pedal Edema Abdominal Exam: Yes: Soft, Bowel Sounds Present. No: Distention, Abdominal Mass , Abdominal Tenderness - Extremities Cranial Nerves II-XII Intact: Yes Limbs: Normal Power, Normal Tone, Normal Coordination Results - Results Lab Results: Laboratory Results - last 24 hr 10/18/18 10/18/18 10/18/18 00:32 13:00 13:14 POC Activ Clotting Time 172 290 Sodium Potassium Chloride Carbon Dioxide Anion Gap BUN Creatinine Est GFR ( Amer) Est GFR (Non-Af Amer) BUN/Creatinine Ratio Glucose POC Glucose (mg/dL) Calcium Total Creatine Kinase 128 CK-MB (CK-2) 1.4 Troponin I 0.39 H* C-React Prot High Sens 10.98 H Triglycerides 71 Cholesterol 100 LDL Cholesterol 51 HDL Cholesterol 35.1 10/18/18 10/18/18 10/18/18 14:13 17:45 21:03 POC Activ Clotting Time Sodium Potassium Chloride Carbon Dioxide Anion Gap BUN Creatinine Est GFR ( Amer) Est GFR (Non-Af Amer) BUN/Creatinine Ratio Glucose POC Glucose (mg/dL) 108 H 150 H 134 H Calcium Total Creatine Kinase CK-MB (CK-2) Troponin I C-React Prot High Sens Triglycerides Cholesterol LDL Cholesterol HDL Cholesterol 10/19/18 10/19/18 05:53 08:48 POC Activ Clotting Time Sodium 138 Potassium 4.0 Chloride 107 Carbon Dioxide 26 Anion Gap 5 BUN 14 Creatinine 0.89 Est GFR ( Amer) 105.1 Est GFR (Non-Af Amer) 86.9 BUN/Creatinine Ratio 15.7 Glucose 116 H POC Glucose (mg/dL) 121 H Calcium 8.3 L Total Creatine Kinase CK-MB (CK-2) Troponin I C-React Prot High Sens Triglycerides Cholesterol LDL Cholesterol HDL Cholesterol Assessment - Problem List Assessment: Patient Problems Injury of fascia of head (Acute) NSTEMI (non-ST elevated myocardial infarction) (Acute) Stented coronary artery (Acute) Syncope (Acute) Coronary artery disease (Chronic) Hypercholesterolemia (Chronic) Obese (Chronic) Sleep apnea (Chronic) Type 2 diabetes mellitus, controlled (Chronic) Plan: NSTEMI (non-ST elevated myocardial infarction) (Acute) Stented coronary artery ( Acute)Syncope (Acute)Coronary artery disease (Chronic) I discussed his case with Dr. Arturo Martinez. We are treating him with brilinta as he can't tolerate aspirin. He is tolerating metoprolol 25 mg po bid - though he is a little bradycardic. He tolerated the coronary angiography and stenting well and without adverse effects. He has had no consequence of his minor NSTEMI - very small troponin I leak. I will discharge him home today. Injury of fascia of head (Acute) His head is healing. He continues to have a mild headache, which he tolerates. He has no neurological symptoms Hypercholesterolemia (Chronic) Continue current Rx - I will recheck his lipids in 3 months and decide on whether to intensify further his treatment with statins. Obese (Chronic) ongoing Sleep apnea (Chronic) secondary diagnosis Type 2 diabetes mellitus, controlled (Chronic) Well contolled - he will restart his metformin as an outpatient. I discussed the above with the patient and his . I have encouraged him to go to cardiac rehab and follow up with Dr. Salter. He will return to see me within 1 week. I discussed the early symptoms of an [place] so that he doesn't delay presentation next time - it was the syncope (likely vasovagal) that led to his current admission.
[2018-10-19] MEDS ORDERED: Metoprolol Tartrate TAB* 25 MG PO SCH (21:00)
--- NOTE | 2018-10-20 19:37 | CATH ---
CC: Dr. Cresencio Hathaway; Dr. Em Martinez * STENT REPORT: DATE OF PROCEDURE: 10/18/18. PRIMARY CARE PHYSICIAN: Dr. Cresencio Hathaway. PROCEDURES: 1. Right radial artery access, bilateral selective coronary cineangiography. 2. Left heart catheterization. 3. Double bolus IV Integrilin, left ventriculography. 4. Mid circumflex 3.5 x 28 Synergy drug-eluting stent. 5. Stent placement RCA 3.5 x 20 Synergy drug-eluting stent proximal RCA. 6. Right radial artery access. HISTORY: The patient with prior bare metal stenting LAD in 2006, on Plavix custodial without ASPIRIN due to ASPIRIN allergy with anaphylaxis. He presents with a non-ST elevation infarct. PROCEDURE ACCESS: Right radial artery sheath 6F slender. MEDICATIONS: 1. Subcu lidocaine. 2. IV Versed. 3. IV fentanyl. 4. Heparin 3000 units. 5. Nitroglycerin 300 mcg. 6. Verapamil 3 mg IA. 7. Brilinta 180 mg p.o. loading dose. 8. Heparin 3000 units, 3000 units IV. 9. Double bolus Integrilin, as he is ASPIRIN intolerant, in the setting of ACS. DIAGNOSTIC CATHETERS: A 5F TIG4 and 5F pigtail. GUIDING CATHETER: Circumflex 6F VL 3.5. WIRE: A 14 BMW which was used to deploy a 3.5 x 28 Synergy drug-eluting stent mid circumflex, then postdilated with a 3.5 x 20 NC balloon to 20 atmospheres with 30 seconds. After angiographic evaluation, the RCA was then approached using a 6FR4 guide, 14 BMW wire which was used to deploy a 3.5 x 20 Synergy drug-eluting stent proximal RCA which was postdilated with a 3.5 x 20 NC balloon 16 atmospheres at 30 seconds. HEMODYNAMICS: Initial AO 90/52 LV. 89/12-18, no aortic valve gradient on pullback. ANGIOGRAPHY: Left main: The left main is relatively short, large, has no stenosis. LAD: The LAD is large, has 2 previously proximal placed stents. They are widely patent without in-stent restenosis. The LAD supplies a small and then a large diagonal branch, distal LAD has mild luminal irregularity but no significant stenosis, ends past the apex. Circumflex: The circumflex is large, not dominant with essentially a single large marginal branch which has a proximal 90% stenosis with distal TIMI2 flow, it supplies most of the obtuse margin. The circumflex proper ends with a very small posterolateral. RCA: The RCA is large, dominant with a proximal 75% stenosis, distally supplies a small to moderate bifurcated PDA and several small posterolateral branches. The RCA lesion area as well as the circumflex lesion area had only mild luminal irregularity at the prior cath in 2006. LV Gram: There is mild localized mid inferior wall hypokinesis, estimated LVEF 50% to 55%. After stent implantation circumflex and post dilatation, distal flow is TIMI3, there is no residual stenosis or loss of branches, no dissection. After stent implantation RCA, post dilatation there is no residual stenosis, TIMI3 flow, no dissection and no lost branches. CONCLUSION: 1. Two-vessel coronary artery disease in the setting of a non-ST elevation infarct with likely circumflex culprit. Excellent angiographic result with drug-eluting stent placement in the circumflex and RCA. 2. Normal LVEF with mild regional wall motion abnormality. 3. Unremarkable left-sided hemodynamics. 4. Successful right radial artery access. 5. IV Integrilin was utilized because of ASPIRIN allergy, having just been loaded with Brilinta in the micro lab analyst. [id number]/CPS #: [id number] [facility]USSweta
== END 2018-10-19 12:21 | disposition home or self-care (01) ==
LOC: ED 18:17 → MEDTELE 20:12 → ICU 10-18 13:40
PROVIDERS: ADMIT Internal Medicine; ATTEND Internal Medicine
DX: R55 Syncope and collapse (principal); R11.2 Nausea with vomiting, unspecified; R61 Generalized hyperhidrosis; R68.83 Chills (without fever); I25.10 Atherosclerotic heart disease of native coronary artery without angina pectoris; E11.9 Type 2 diabetes mellitus without complications; E78.5 Hyperlipidemia, unspecified; Z85.47 Personal history of malignant neoplasm of testis; Z92.21 Personal history of antineoplastic chemotherapy; S01.112A Laceration without foreign body of left eyelid and periocular area, initial encounter; X58.XXXA Exposure to other specified factors, initial encounter; Y92.9 Unspecified place or not applicable; R19.7 Diarrhea, unspecified; E66.9 Obesity, unspecified; G47.30 Sleep apnea, unspecified; Z95.5 Presence of coronary angioplasty implant and graft
CPT/HCPCS: 12001; 36415; 70450; 71045; 80048; 80053; 80061; 82550; 82553; 83036; 83605; 84484; 85025; 85347; 86141; 87641; 93005; 93306; 93458; 96372; 96374; 99156; 99157; 99284; A9270-GY; C1725; C1769; C1876; C1887; C9600-LC; C9600-RC; G0378; J1327; J1644; J2250; J2405; J3010

== ENCOUNTER 2019-09-12 13:30 | Emergency (ER) | payer BC ==
[2019-09-12 14:13] VITALS: BP 117/69
--- NOTE | 2019-09-12 14:31 | ED ---
GI/ HPI - HPI Summary HPI Summary: 64 year old male presents with urgency and dysuria for the past day. He states that he had the symptoms about a month ago but they resolved on there own. He denies any fevers. No nausea vomiting. No testicular pain. No penile discharge. Denies any prostate issues. No hematuria. No history kidney sounds. Does have a history of UTIs many years ago. He has a cardiac history and is diabetic. - History of Current Complaint Chief Complaint: [facility]CGU Time Seen by Provider: 09/12/19 14:27 Stated Complaint: FREQUENT URINATION Pain Intensity: 0 - Additional Pertinent History Primary Care Physician: [id number] - Allergy/Home Medications Allergies/Adverse Reactions: Allergies Allergy/AdvReac Type Severity Reaction Status Date / Time aspirin Allergy Hives Verified 09/12/19 14:06 ibuprofen Allergy Hives Verified 09/12/19 14:06 ketorolac [From Toradol] Allergy Hives/Diff. Verified 09/12/19 14:06 Breathing/I tching NSAIDS (Non-Steroidal Allergy Hives Verified 09/12/19 14:06 Anti-Inflamma Home Medications: Home Medications Metoprolol Tartrate TAB* [Lopressor TAB*] 25 mg PO DAILY 09/12/19 [History Confirmed 09/12/19] PMH/Surg Hx/FS Hx/Imm Hx Endocrine/Hematology History: Reports: Hx Diabetes Denies: Hx Anemia Cardiovascular History: Denies: Hx Hypertension, Hx Peripheral Vascular Disease Respiratory History: Denies: Hx Asthma GI History: Denies: Hx Gastroesophageal Reflux Disease, Hx Jaundice Sensory History: Denies: Hx Contacts or Glasses, Hx Hearing Aid Opthamlomology History: Denies: Hx Contacts or Glasses Neurological History: Reports: Hx Headaches - mild from head injury Denies: Hx Seizures, Hx Transient Ischemic Attacks (TIA) - Surgical History Surgery Procedure, Year, and Place: cardiac stent x2 2018 Infectious Disease History: No Infectious Disease History: Denies: Traveled Outside the [place] in Last 30 Days - Family History Known Family History: Positive: Cardiac Disease - Social History Alcohol Use: Occasionally Hx Substance Use: No Substance Use Type: Reports: None Hx Tobacco Use: No Smoking Status (MU): Never Smoked Tobacco Review of Systems Negative: Fever Negative: Chest Pain Negative: Shortness Of Breath Positive: dysuria, urgency All Other Systems Reviewed And Are Negative: Yes Physical Exam Triage Information Reviewed: Yes Vital Signs On Initial Exam: Initial Vitals Temp Pulse Resp BP Pulse Ox 98.2 F 71 16 117/69 99 09/12/19 14:08 09/12/19 14:08 09/12/19 14:08 09/12/19 14:08 09/12/19 14:08 Vital Signs Reviewed: Yes Appearance: Positive: Well-Appearing Skin: Positive: Warm, Dry Head/Face: Positive: Normal Head/Face Inspection Eyes: Positive: Normal, Conjunctiva Clear ENT: Positive: Pharynx normal Respiratory/Lung Sounds: Positive: Clear to Auscultation, Breath Sounds Present Cardiovascular: Positive: Normal, RRR Abdomen Description: Positive: Nontender, Soft. Negative: CVA Tenderness (R), CVA Tenderness (L) Bowel Sounds: Positive: Present Musculoskeletal: Positive: Normal Neurological: Positive: Normal Psychiatric: Positive: Normal Diagnostics - Vital Signs Vital Signs Temp Pulse Resp BP Pulse Ox 09/12/19 14:08 98.2 F 71 16 117/69 99 - Laboratory Lab Results: Lab Results 09/12/19 Range/Units 14:22 POC Urine Color Yellow POC Urine Clarity Clear POC Urine pH 5.5 (5-9) POC Ur Specif [place] <= 1.005 L (1.010-1.030) POC Urine Protein Negative (Negative) POC Ur Glucose (UA) Negative (Negative) POC Urine Ketones Negative (Negative) POC Urine Blood Negative (Negative) POC Urine Nitrite Negative (Negative) POC Urine Bilirubin Negative (Negative) POC Urine Urobilinogen 0.2 (Negative) POC U Leukocyte Esteras 1+ A (Negative) Lab Statement: Any lab studies that have been ordered have been reviewed, and results considered in the medical decision making process. GIGU Course/Dx - Course Course Of Treatment: 64 year old male presents with urgency and dysuria for the past day. He states that he had the symptoms about a month ago but they resolved on there own. He denies any fevers. No nausea vomiting. No testicular pain. No penile discharge. Denies any prostate issues. No hematuria. No history kidney sounds. Does have a history of UTIs many years ago. He has a cardiac history and is diabetic. On exam has a normal physical exam. Urine shows potential UTI. We'll treat with Augmentin. Patient understands and agrees with plan. - Diagnoses Differential Diagnoses - Male: Pyelonephritis, Ureteral Calculi, Urinary Tract Infection Provider Diagnoses: UTI (urinary tract infection) Discharge ED - Sign-Out/Discharge Documenting (check all that apply): Patient Departure All imaging exams completed and their final reports reviewed: No Studies - Discharge Plan Condition: Good Disposition: HOME Prescriptions: Amoxicillin/Clavulanate TAB* [Augmentin TAB 500 mg*] 500 mg PO BID #10 tab Patient Education Materials: Urinary Tract Infection in Men (ED) Referrals: Cresencio Hathaway MD [Primary Care Provider] - Additional Instructions: take augmentin twice a day for 5 days Drink plenty of fluids Take Tylenol every 6 hours for pain follow up with primary Return to ED if develop any new or worsening symptoms - Billing Disposition and Condition Condition: GOOD Disposition: Home
== END 2019-09-12 14:47 | disposition home or self-care (01) ==
LOC: UCEAST 13:30
DX: N39.0 Urinary tract infection, site not specified (principal); E11.9 Type 2 diabetes mellitus without complications; Z88.6 Allergy status to analgesic agent; Z88.8 Allergy status to other drugs, medicaments and biological substances; Z95.5 Presence of coronary angioplasty implant and graft
CPT/HCPCS: 81003; 87086; 99212; G0463